=== PATIENT | female | born 1995 | race Caucasian/White ===

== ENCOUNTER 2017-01-30 17:12 | Emergency (ER) | payer OTHER ==
[~2017-01-30] VITALS: Ht 167.6 cm; Wt 61.2 kg
[2017-01-30 17:16] VITALS: BP 128/73
== END 2017-01-30 19:10 | disposition home or self-care (01) ==
LOC: ER 17:12
DX: L98.9 Disorder of the skin and subcutaneous tissue, unspecified (principal); R59.1 Generalized enlarged lymph nodes; F17.210 Nicotine dependence, cigarettes, uncomplicated